=== PATIENT | female | born 1975 | race Caucasian/White ===

== ENCOUNTER 2019-11-26 11:56 | Emergency (ER) | payer BC, SELFPAY ==
[2019-11-26 11:59] VITALS: BP 137/66; PULSE 96; RESP 18; TEMP 36.7; O2SAT 98; BMI 25.7
--- NOTE | 2019-11-26 12:15 | [facility].EDGENADL ---
ED Disposition Clinical Impression: Allergic reaction Qualifiers: Encounter type: initial encounter Qualified Code(s): T78.40XA - Allergy, unspecified, initial encounter Disposition: Home, Self-Care Condition on Discharge: Good Additional Instructions: You were seen on an emergency basis. It is very important that you follow up with your primary care provider and/or specialist as we discussed within 2 days. All labs and imaging were obtained and interpreted here to rule out life threatening emergencies, but your final results should be reviewed by your primary doctor at your follow up appointment. Please return to the emergency department if any of your symptoms worsen, or if they do not improve as we discussed. Return immediately to the emergency department for hand surgery consultation if you develop fever, chills, worsening swelling, worsening decreased range of motion, tenderness over the palmar part of the finger or discharge from the blister as we discussed. Referrals: Geoff Rowland [Primary Care Provider] - - Critical Care Critical Care Time: No Attestation: On , the high probability of a clinically significant, sudden or life threatening deterioration of the following system(s) required my full and direct attention, intervention and personal management. The time I documented below is in addition to time spent performing reported procedures but includes the following listed in this critical care notation. Medical Decision Making - Medical Records Medical records reviewed: Yes: I reviewed the patient's medical records. - Prashanth Inquiry Pt receiving controlled substance: No Medical Decision Narrative: 44-year-old female presenting with atraumatic finger swelling. This looks like a localized allergic reaction after an insect sting. No foreign body. No signs of infection. She was given 25 mg of oral Benadryl. She is already taking Bactrim for an active UTI. I instructed her on returning for Kanavel signs should they present, however there is no indication that she has cellulitis or flexor tenosynovitis here. She will follow-up with PCP if not return here sooner for symptoms as above General Adult HPI - General Stated complaint: left pinky finger injury Time Seen by Provider: 11/26/19 12:21 - History of Present Illness HPI narrative: This is a 44-year-old female who presents with a 4-day history of atraumatic left medial fifth finger swelling. She thinks she was bitten by a insect. She has had localized swelling to the lower aspect of the finger. No fever, chills, erythema, pruritus. - Related Data Home Medications Medication Instructions Recorded Confirmed Escitalopram Oxalate [Lexapro] 10 mg PO DAILY 01/16/19 01/16/19 Previous Rx's Medication Instructions Recorded Naproxen [Naprosyn 500mg tablet] 500 mg PO Q12H PRN 30 Days #60 tab 01/16/19 Allergies Allergy/AdvReac Type Severity Reaction Status Date / Time Penicillins Allergy Verified 01/16/19 17:04 [facility] History - Hepatitis A Screen Attestation statement:: This patient has been screened for Hepatitis A risk factors. I have reviewed the patient's past medical history: Yes - Social History Smoking Status: Current every day smoker Tobacco Type: cigarettes # Packs/Day (cigarettes): 1 Alcohol Intake: never Occupational Status: employed ROS Obtained: Yes All systems reviewed & no additional complaints Physical Exam General: well developed, well hydrated, no acute distress Heart: rate is normal, rhythm is normal. No murmurs appreciated Lungs: clear to auscultation bilaterally with normal effort and good air movement. Symmetrical chest rise Extremities: global full range of motion. atraumatic. well-perfused. Left fifth finger with a blister to the radial aspect. Full passive range of motion. Decreased active range of motion. No tendon tenderness. No Kanavel signs. No erythema or purulence. No abscess.
[2019-11-26 12:54] VITALS: BP 127/76; PULSE 89; O2SAT 97
[2019-11-26 13:00] VITALS: BP 127/78; PULSE 84; RESP 16; TEMP 36.6; O2SAT 98
== END 2019-11-26 13:02 | disposition home or self-care (01) ==
PROVIDERS: Emergency Provider Physician Assistant; PCP Internal Medicine
DX: S60.467A Insect bite (nonvenomous) of left little finger, initial encounter (principal); Z88.0 Allergy status to penicillin; F17.210 Nicotine dependence, cigarettes, uncomplicated
CPT/HCPCS: 99282